=== PATIENT | female | born 1960 | race Caucasian/White ===

== ENCOUNTER 2018-12-07 21:27 | Emergency (ER) | payer BC, OTHER ==
--- NOTE | 2018-12-07 22:33 | UC ---
Bite Injury/Animal HPI - HPI Summary HPI Summary: 58 year old diabetic with dog bite yesterday, puncture wound to the left hand. Reached into the dog's create to remove a yogurt container which the dog had snagged. She has been minding this dog in her home, knows shots are upu to date. Took penicillin which she had at home, but hand has become progressively more red and swollen, with lymphantic spread to the elbow. No fever. Diabetes with a1c of 6%--well controlled [facility] Mary Believes that tetanus is up to date. - History of Current Complaint Chief Complaint: JANETHkin Stated Complaint: DOG BITE LEFT HAND Time Seen by Provider: 12/07/18 22:23 Hx Obtained From: Patient, Family/Telemetry Nurse - here with her . Severity Currently: Mild Severity Initially: Moderate Pain Intensity: 2 Onset/Duration: Gradual Onset, Lasting Hours Character: Puncture Aggravating Factor(s): Exertion Alleviating Factor(s): Nothing Associated Signs And Symptoms: Positive: Erythema, Swelling Hx of Bite: Provoked by: - reaching into dog's crate Animal Available for Observation: Yes Animal Control Notified: Yes - Risk Factors Infection/Sepsis Risk Factors: Diabetes, Full-Thickness Puncture, Delay in Initial Treatment - Allergies/Home Medications Allergies/Adverse Reactions: Allergies Allergy/AdvReac Type Severity Reaction Status Date / Time Sulfa (Sulfonamide Allergy Fever Verified 12/07/18 22:01 Antibiotics) Home Medications: Home Medications Dulaglutide [Mary] 1.5 mg SQ WEEKLY 12/07/18 [History Confirmed 12/07/18] PMH/Surg Hx/FS Hx/Imm Hx Previously Healthy: Yes Endocrine History: Diabetes - well controlled a1c without diabetes complications. - Surgical History Surgical History: None - Family History Known Family History: Positive: Non-Contributory - Social History Occupation: Employed Full-time Lives: With Family Alcohol Use: None Substance Use Type: None Smoking Status (MU): Heavy Every Day Tobacco Smoker Review of Systems All Other Systems Reviewed And Are Negative: Yes Constitutional: Positive: Fatigue. Negative: Fever Skin: Positive: Other - progressive erythema and swelling of the left hand with lymphangitis spred. Eyes: Positive: Negative ENT: Positive: Negative Respiratory: Positive: Negative. Negative: Shortness Of Breath Cardiovascular: Positive: Other - aware has a heart murmur; this is not a new observation.. Negative: Palpitations Gastrointestinal: Negative: Nausea Genitourinary: Positive: Negative - no hx of renal impairment. Motor: Positive: Negative Neurovascular: Positive: Negative Musculoskeletal: Positive: Arthralgia Neurological: Negative: Headache, Weakness, Paresthesia Psychological: Positive: Negative Is Patient Immunocompromised?: No Physical Exam Triage Information Reviewed: Yes Appearance: Ill-Appearing - looks mildly unwell, Pain Distress - mild Vital Signs: Initial Vital Signs Temp 97.8 F 12/07/18 21:56 Pulse 72 12/07/18 21:56 Resp 16 12/07/18 21:56 BP 122/74 12/07/18 21:56 Pulse Ox 99 12/07/18 21:56 Eyes: Positive: Conjunctiva Clear ENT: Positive: Pharynx normal Neck: Positive: Supple, Nontender, No Lymphadenopathy Respiratory: Positive: Lungs clear, Normal breath sounds Cardiovascular: Positive: RRR, Murmur:Sys:Grade _?_/ - 2/6 left sternal border without radiation Musculoskeletal Exam: Other - diffuse swelling left hand. Pain with passive movement of digits 4 and 5, wrist rom is full. Can flex and extend mcp joints. Musculoskeletal: Positive: ROM Intact Skin Exam: Other - puncutre wound just lateral to hypothenar eminence on the palm, 3 mm and above the 2nd metacarpal on the dorsal surface. Diffuse redness and swelling of the palm. Lymphangitic spread approximately 1/[address] up forearm with some erytheam medial epicondylar area. Skin: Positive: Other - No axillar adenopathy, no pain with movement of the elbow or shoulder. Bite Injury Course/Dx - Course Course Of Treatment: im rocephin given tonight, with augmentin to begin tomorrow. Declined ER visit tonight. Begin augmentin tomorrow. Ibuprofen or acetaminophen for pain. - Differential Dx/Diagnosis Differential Diagnosis/HQI/PQRI: Cellulitis, Puncture Provider Diagnosis: Cellulitis of left hand, Dog bite of hand Discharge - Sign-Out/Discharge Documenting (check all that apply): Patient Departure All imaging exams completed and their final reports reviewed: No Studies - Discharge Plan Condition: Stable Disposition: HOME Prescriptions: Amoxicillin/Clavulanate TAB* [Augmentin TAB 875*] 875 mg PO BID #14 tab Patient Education Materials: Cellulitis (ED) Referrals: Diamond Hernandez MD [Primary Care Provider] - Additional Instructions: Tomorrow, you will check with Dr. Hernandez that your tetanus is up to date. Begin augmentin once you hve the prescription tomorrow. You will go to the emergency room for evaluation and treatment if you have increase pain and swelling of the left hand and forearm. Use acetaminophen 650mg every 6 hours for pain, OR ibuprofen 600mg every 6 hours. - Billing Disposition and Condition Condition: STABLE Disposition: Home
[2018-12-07] MEDS ORDERED: cefTRIAXone VIAL(*) 1,000 MG VIAL IM ONE (22:35)
[2018-12-07] MEDS ORDERED: Lidocaine 1%* 5 ML VIAL INJ ONE (22:38)
== END 2018-12-07 23:11 | disposition home or self-care (01) ==
LOC: UCCORT 21:27
DX: S61.432A Puncture wound without foreign body of left hand, initial encounter (principal); L03.114 Cellulitis of left upper limb; W54.0XXA Bitten by dog, initial encounter; Y92.009 Unspecified place in unspecified non-institutional (private) residence as the place of occurrence of the external cause; R53.83 Other fatigue; E11.9 Type 2 diabetes mellitus without complications; Z88.2 Allergy status to sulfonamides; F17.200 Nicotine dependence, unspecified, uncomplicated
CPT/HCPCS: 96372; 99202; G0463; J0696